=== PATIENT | male | born 1995 | race Caucasian/White ===

== ENCOUNTER 2017-07-06 13:43 | Emergency (ER) | payer OTHER ==
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
[2017-07-06 13:58] VITALS: TEMP 98; BMI 18.2
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
[2017-07-06] MEDS ORDERED: IBUPROFEN 600 MG TABLET (FP) PO ONE ×2 (14:49→14:59)
[2017-07-06 15:17] VITALS: BP 108/78; PULSE 89
== END 2017-07-06 15:11 | disposition home or self-care (01) ==
LOC: JER 13:43
DX: M25.512 Pain in left shoulder (principal); V03.90XA Pedestrian on foot injured in collision with car, pick-up truck or van, unspecified whether traffic or nontraffic accident, initial encounter; Y93.89 Activity, other specified; Y92.410 Unspecified street and highway as the place of occurrence of the external cause
CPT/HCPCS: 73030-TC-LT-FY; 99282-25